=== PATIENT | female | born 1975 | race Caucasian/White ===

== ENCOUNTER 2018-06-28 10:18 | Outpatient (CLI) | payer OTHER ==
[2018-06-28 11:03] LABS: BASOPHILS # (AUTO) 0.1 K/uL (0.0-0.2); BASOPHILS % (AUTO) 2.1 % (0.0-2.0); EOSINOPHILS # (AUTO) 0.1 K/uL (0.0-0.4); EOSINOPHILS % (AUTO) 2.7 % (0.0-4.0); HEMATOCRIT 28.4 % (36-48); HEMOGLOBIN 9.2 g/dL (12.0-16.0); LYMPHOCYTES # (AUTO) 1.4 K/uL (1.0-5.5); LYMPHOCYTES % (AUTO) 43.1 % (20.5-51.5); MEAN CORPUSCULAR HEMOGLOBIN 25 pg (27-31); MEAN CORPUSCULAR HGB CONC 32 % (32-36); MEAN CORPUSCULAR VOLUME 77 fL (79.0-98.0); MONOCYTES # (AUTO) 0.3 K/uL (0.0-1.0); MONOCYTES % (AUTO) 9.1 % (1.7-9.3); NEUTROPHILS # (AUTO) 1.4 K/uL (1.8-7.7); PLATELET COUNT (AUTO) 212 K/uL (130-430); RED BLOOD CELL COUNT(AUTO) 3.71 MIL/uL (4.2-6.2); RED CELL DISTRIBUTION WIDTH 17.2 % (9.0-15.0); WHITE BLOOD COUNT (AUTO) 3.3 K/uL (4.8-10.8)
[2018-06-28 11:26] LABS: ALBUMIN 3.7 g/dL (3.4-4.8); CALCIUM 9.3 mg/dL (8.4-11.0); CREATININE 0.62 mg/dL (0.55-1.30); TOTAL BILIRUBIN 0.4 mg/dL (0.0-1.0)
== END 2018-06-28 20:33 | disposition home or self-care (01) ==
LOC: SLB 10:18
PROVIDERS: ATTEND General Practice
DX: Z00.01 Encounter for general adult medical examination with abnormal findings (principal); E55.9 Vitamin D deficiency, unspecified; Z86.2 Personal history of diseases of the blood and blood-forming organs and certain disorders involving the immune mechanism
CPT/HCPCS: 36415; 80053; 80061; 82306; 85025

== ENCOUNTER → 2018-12-29 | Outpatient (CLI) | payer OTHER ==
[2018-12-29 07:40] LABS: HEMATOCRIT 37.8 % (36-48); RETICULOCYTE COUNT 2.5 % (0.5-1.5)
[2018-12-29 07:51] LABS: TOTAL IRON BIND. CAPACITY 436 ug/dL (250-450)
== END | disposition home or self-care (01) ==
LOC: SLB 06:42
PROVIDERS: ATTEND General Practice
DX: D64.9 Anemia, unspecified (principal)
CPT/HCPCS: 36415; 82728; 83540-TC; 83550-TC; 85018-TC; 85044-TC

== ENCOUNTER 2019-07-04 10:20 | Outpatient (CLI) | payer OTHER | END 2019-07-04 19:39 | disposition home or self-care (01) | LOC: SLB 10:20 | PROVIDERS: ATTEND General Practice | DX: R68.89 Other general symptoms and signs (principal); Z20.828 Contact with and (suspected) exposure to other viral communicable diseases | CPT/HCPCS: C9803; U0003 ==

== ENCOUNTER 2019-07-22 07:41 | Emergency (ER) | payer OTHER ==
[~2019-07-22] VITALS: Ht 152.4 cm; Wt 68.0 kg
[2019-07-22 07:55] VITALS: BP_SYST 131
[2019-07-22 08:13] LABS: HEMATOCRIT 31.4 % (36-48); MEAN CORPUSCULAR HEMOGLOBIN 23 pg (27-31); MEAN CORPUSCULAR HGB CONC 32 % (32-36); MEAN CORPUSCULAR VOLUME 72 fL (79.0-98.0); PLATELET COUNT (AUTO) 222 K/uL (130-430); RED BLOOD CELL COUNT(AUTO) 4.33 MIL/uL (4.2-6.2); RED CELL DISTRIBUTION WIDTH 16.3 % (9.0-15.0); WHITE BLOOD COUNT (AUTO) 3.9 K/uL (4.8-10.8)
[2019-07-22 08:28] LABS: CALCIUM 8.8 mg/dL (8.4-11.0); CREATININE 0.78 mg/dL (0.55-1.30); POTASSIUM 4.1 mmol/L (3.5-5.1)
[2019-07-22 08:34] LABS: ALBUMIN 3.6 g/dL (3.4-4.8); TOTAL BILIRUBIN 0.3 mg/dL (0.0-1.0)
[2019-07-22 08:50] LABS: ATYPICAL LYMPHOCYTES % 7 % (0-0); BAND % (MANUAL) 0 % (0-6); LYMPHOCYTES % (MANUAL) 29 % (20-46); MONOCYTES % (MANUAL) 4 % (0-11)
[2019-07-22 08:51] LABS: BASOPHILS % (MANUAL) 0 % (0-2); EOSINOPHILS % (MANUAL) 5 % (0-7)
[2019-07-22] MEDS ORDERED: KETOROLAC TROMETHAMINE 60 MG/2 ML VIAL IM ONE (09:30)
[2019-07-22 10:08] VITALS: BP_SYST 128
== END 2019-07-22 10:08 | disposition home or self-care (01) ==
LOC: SED 07:41
DX: N83.202 Unspecified ovarian cyst, left side (principal); N83.201 Unspecified ovarian cyst, right side; D25.9 Leiomyoma of uterus, unspecified; N94.6 Dysmenorrhea, unspecified; Z88.1 Allergy status to other antibiotic agents
CPT/HCPCS: 36415; 76830; 76857; 80053; 81002; 81025; 85007; 85027; 96372; 99284; J1885

== ENCOUNTER → 2019-07-29 | Outpatient (CLI) | payer OTHER | END | disposition home or self-care (01) | LOC: SCT 06:59 | PROVIDERS: ATTEND General Practice | DX: N20.0 Calculus of kidney (principal) ==

== ENCOUNTER 2019-08-22 08:19 | Outpatient (CLI) | payer OTHER ==
[2019-08-22 09:00] LABS: BASOPHILS % (AUTO) 1.5 % (0.0-2.0); EOSINOPHILS # (AUTO) 0.1 K/uL (0.0-0.4); EOSINOPHILS % (AUTO) 3.8 % (0.0-4.0); HEMOGLOBIN 9.7 g/dL (12.0-16.0); LYMPHOCYTES # (AUTO) 1.4 K/uL (1.0-5.5); LYMPHOCYTES % (AUTO) 42.4 % (20.5-51.5); MEAN CORPUSCULAR HEMOGLOBIN 23 pg (27-31); MEAN CORPUSCULAR HGB CONC 31 % (32-36); MEAN CORPUSCULAR VOLUME 72 fL (79.0-98.0); MONOCYTES # (AUTO) 0.3 K/uL (0.0-1.0); MONOCYTES % (AUTO) 8.2 % (1.7-9.3); NEUTROPHILS # (AUTO) 1.4 K/uL (1.8-7.7); NEUTROPHILS % (AUTO) 44.1 % (40.0-70.0); PLATELET COUNT (AUTO) 200 K/uL (130-430); RED BLOOD CELL COUNT(AUTO) 4.29 MIL/uL (4.2-6.2); RETICULOCYTE COUNT 2.1 % (0.5-1.5); WHITE BLOOD COUNT (AUTO) 3.3 K/uL (4.8-10.8)
== END 2019-08-22 21:12 | disposition home or self-care (01) ==
LOC: SLB 08:19
PROVIDERS: ATTEND General Practice
DX: D64.9 Anemia, unspecified (principal)
CPT/HCPCS: 36415; 83550-TC; 85025; 85044-TC

== ENCOUNTER 2019-09-11 22:52 | Emergency (ER) | payer OTHER ==
[~2019-09-11] VITALS: Ht 152.4 cm; Wt 65.8 kg
[2019-09-11 22:55] VITALS: BP_SYST 142
[2019-09-11] MEDS ORDERED: MORPHINE 4 MG/ML INJ. SYRINGE IM ONE (23:15)
[2019-09-12 00:02] VITALS: BP_SYST 138
== END 2019-09-12 00:02 | disposition home or self-care (01) ==
LOC: SED 22:52
DX: M76.11 Psoas tendinitis, right hip (principal); R10.31 Right lower quadrant pain; Z88.1 Allergy status to other antibiotic agents
CPT/HCPCS: 81025; 96372; 99283; J2270

== ENCOUNTER 2019-10-12 15:05 | Outpatient (CLI) | payer OTHER | END 2019-10-12 19:18 | disposition home or self-care (01) | LOC: SRD 15:05 | PROVIDERS: ATTEND General Practice | DX: M54.31 Sciatica, right side (principal) | CPT/HCPCS: 72110 ==

== ENCOUNTER 2019-12-01 07:40 | Outpatient (CLI) | payer OTHER | END 2019-12-01 20:37 | disposition home or self-care (01) | LOC: SUS 07:40 | PROVIDERS: ATTEND General Practice | DX: N83.292 Other ovarian cyst, left side (principal); D21.9 Benign neoplasm of connective and other soft tissue, unspecified | CPT/HCPCS: 76830-TC; 76857 ==

== ENCOUNTER 2019-12-20 09:46 | Emergency (ER) | payer OTHER ==
[~2019-12-20] VITALS: Ht 157.5 cm; Wt 68.9 kg
[2019-12-20 10:00] VITALS: BP_SYST 113
[2019-12-20] MEDS ORDERED: KETOROLAC TROMETHAMINE 60 MG/2 ML VIAL IM ONE (10:30)
[2019-12-20 11:23] LABS: EOSINOPHILS # (AUTO) 0.1 K/uL (0.0-0.4); EOSINOPHILS % (AUTO) 2.5 % (0.0-4.0); HEMATOCRIT 29.9 % (36-48); HEMOGLOBIN 9.4 g/dL (12.0-16.0); LYMPHOCYTES # (AUTO) 1.1 K/uL (1.0-5.5); LYMPHOCYTES % (AUTO) 29.7 % (20.5-51.5); MEAN CORPUSCULAR HEMOGLOBIN 23 pg (27-31); MEAN CORPUSCULAR HGB CONC 32 % (32-36); MEAN CORPUSCULAR VOLUME 74 fL (79.0-98.0); MONOCYTES # (AUTO) 0.3 K/uL (0.0-1.0); MONOCYTES % (AUTO) 7.4 % (1.7-9.3); NEUTROPHILS # (AUTO) 2.2 K/uL (1.8-7.7); NEUTROPHILS % (AUTO) 59.4 % (40.0-70.0); PLATELET COUNT (AUTO) 225 K/uL (130-430); RED BLOOD CELL COUNT(AUTO) 4.04 MIL/uL (4.2-6.2); RED CELL DISTRIBUTION WIDTH 17.9 % (9.0-15.0); WHITE BLOOD COUNT (AUTO) 3.7 K/uL (4.8-10.8)
[2019-12-20 11:44] LABS: CALCIUM 9.3 mg/dL (8.4-11.0); CREATININE 0.59 mg/dL (0.55-1.30); POTASSIUM 3.9 mmol/L (3.5-5.1)
[2019-12-20 11:48] LABS: INR 0.9 (0.8-1.2); PROTHROMBIN TIME 9.7 SECS (9.5-12.5)
[2019-12-20 11:52] LABS: ALBUMIN 3.7 g/dL (3.4-4.8); TOTAL BILIRUBIN 0.3 mg/dL (0.0-1.0)
[2019-12-20 12:19] VITALS: BP_SYST 113
== END 2019-12-20 12:19 | disposition home or self-care (01) ==
LOC: SED 09:46
DX: R10.31 Right lower quadrant pain (principal); Z88.1 Allergy status to other antibiotic agents
CPT/HCPCS: 36415; 74176; 80053; 81002; 81025; 82150; 83605; 83690; 84703; 85025; 85610; 85730; 96372; 99284; J1885

== ENCOUNTER 2019-12-26 11:18 | Outpatient (CLI) | payer OTHER ==
[2019-12-26] MEDS ORDERED: GADOBENATE DIMEGLUMINE 529 MG/ML, 15 ML VIAL IV ONE (12:09)
== END 2019-12-26 21:09 | disposition home or self-care (01) ==
LOC: SMI 11:18
PROVIDERS: ATTEND General Practice
DX: C54.1 Malignant neoplasm of endometrium (principal); R21 Rash and other nonspecific skin eruption
CPT/HCPCS: 72197; 74183; A9577

== ENCOUNTER 2020-08-02 07:35 | Outpatient (CLI) | payer OTHER ==
[2020-08-02 09:37] LABS: HEMATOCRIT 37.1 % (36-48); HEMOGLOBIN 12.6 g/dL (12.0-16.0); MEAN CORPUSCULAR HEMOGLOBIN 29 pg (27-31); MEAN CORPUSCULAR HGB CONC 34 % (32-36); MEAN CORPUSCULAR VOLUME 85 fL (79.0-98.0); PLATELET COUNT (AUTO) 175 K/uL (130-430); RED BLOOD CELL COUNT(AUTO) 4.37 MIL/uL (4.2-6.2); WHITE BLOOD COUNT (AUTO) 2.3 K/uL (4.8-10.8)
[2020-08-02 09:57] LABS: ALBUMIN 3.5 g/dL (3.4-4.8); CALCIUM 8.8 mg/dL (8.4-11.0); CREATININE 0.71 mg/dL (0.55-1.30); POTASSIUM 3.6 mmol/L (3.5-5.1); TOTAL BILIRUBIN 0.6 mg/dL (0.0-1.0)
[2020-08-02 10:38] LABS: BASOPHILS % (MANUAL) 0 % (0-2); EOSINOPHILS % (MANUAL) 5 % (0-7); LYMPHOCYTES % (MANUAL) 37 % (20-46); MONOCYTES % (MANUAL) 7 % (0-11)
== END 2020-08-02 14:00 | disposition home or self-care (01) ==
LOC: SLB 07:35
PROVIDERS: ATTEND General Practice
DX: J40 Bronchitis, not specified as acute or chronic (principal); R19.7 Diarrhea, unspecified
CPT/HCPCS: 36415; 80053; 85007; 85027; 87045-TC; 87046; 87177